=== PATIENT | male | born 1975 ===

== ENCOUNTER 2017-07-17 15:28 | Emergency (ER) | payer OTHER ==
[2017-07-17 15:33] VITALS: BP 110/89; PULSE 64; RESP 16; TEMP 99.1; O2SAT 99
--- NOTE | 2017-07-17 15:49 | ED PDOC ---
HPI: General Adult Time Seen by Provider: 07/17/17 15:34 Chief Complaint (Nursing): ENT Problem Chief Complaint (Provider): Ear pain History Per: Patient Onset/Duration Of Symptoms: Days (3) Current Symptoms Are (Timing): Still Present Severity: Moderate Additional History Per: Patient Additional Complaint(s): 42 y/o male complaining of right ear pain and headache for the last three days. No fever, sore throat, or other complaints. Past Medical History Vital Signs: Last Vital Signs Temp 99.1 F 07/17/17 15:31 Pulse 64 07/17/17 15:31 Resp 16 07/17/17 15:31 BP 110/89 07/17/17 15:31 Pulse Ox 99 07/17/17 15:51 - Medical History PMH: No Chronic Diseases, Diverticulitis - Family History Family History: States: No Known Family Hx - Home Medications Home Medications: Ambulatory Orders Medication Instructions Recorded Ciprofloxacin [Cipro] 500 mg PO BID #6 tab 11/09/16 Dicyclomine [Bentyl] 10 mg PO QID PRN #10 cap 11/09/16 Amoxicillin [Amoxil 500 mg Cap] 500 mg PO Q8 #30 cap 07/17/17 Naproxen [Naprosyn] 500 mg PO BID PRN #30 tab 07/17/17 - Allergies Allergies/Adverse Reactions: Allergies Allergy/AdvReac Type Severity Reaction Status Date / Time No Known Allergies Allergy Verified 11/11/14 08:06 Review of Systems Constitutional: Negative for: Fever ENT: Positive for: Ear Pain. Negative for: Throat Pain Physical Exam - Physical Exam Appears: Positive for: Well, No Acute Distress Skin: Positive for: Normal Color, Warm, Dry ENT: Positive for: TM Is/Are (right is bulging and erythematous, no canal erythema), Hearing Is (normal). Negative for: Pharyngeal Erythema, Tonsillar Exudate, Tonsillar Swelling Neck: Positive for: Painless ROM - ECG O2 Sat by Pulse Oximetry: 99 Medical Decision Making Medical Decision Making: Patient given prescription for Amoxicillin for Otitis Media. Discharge and reevaluation instructions give. All questions answered. Patient discharged in stable condition. ~ Scribe Attestation: Documented by~Kera Wright, acting as a scribe for DIANN Hung. Provider Scribe Attestation: All medical record entries made by the Scribe were at my direction and personally dictated by me. I have reviewed the chart and agree that the record accurately reflects my personal performance of the history, physical exam, medical decision making, and the department course for this patient. I have also personally directed, reviewed, and agree with the discharge instructions and disposition. Disposition - Clinical Impression Clinical Impression: Otitis media - Patient ED Disposition Is Patient to be Admitted: No Counseled Patient/Family Regarding: Diagnosis, Need For Followup - Disposition Referrals: [facility] [Outside] Disposition: Routine/Home Disposition Time: 15:50 Condition: STABLE Prescriptions: Amoxicillin [Amoxil 500 mg Cap] 500 mg PO Q8 #30 cap Naproxen [Naprosyn] 500 mg PO BID PRN #30 tab PRN Reason: Pain Instructions: Otitis Media (ED) Forms: [employer] (Czech) Print Language: PERSIAN
== END 2017-07-17 16:14 | disposition home or self-care (01) ==
LOC: H.ER 15:28
DX: H66.91 Otitis media, unspecified, right ear (principal)

== ENCOUNTER 2018-10-29 14:59 | Emergency (ER) | payer OTHER ==
--- NOTE | 2018-10-29 15:30 | ED PDOC ---
HPI: Influenza Time Seen by Provider: 10/29/18 15:15 Chief Complaint: Flu-like Symptoms Chief Complaint (Provider): Flu-like Symptoms History Per: Patient Exam Limitations: no limitations Onset/Duration Of Symptoms: Days (x3) Additional complaint(s):: 43 year old male presents to the ED for evaluation of cough, fever, shaking, and body aches for the past three days. Denies vomiting and diarrhea. Notes taking Advil last at 0600 this morning, but states he does not feel like it helped him. PMD: [facility] Past Medical History Reviewed: Historical Data, Nursing Documentation, Vital Signs Vital Signs: Last Vital Signs Temp 103.1 F H 10/29/18 15:11 Pulse 98 H 10/29/18 15:11 Resp 18 10/29/18 15:11 BP 103/60 10/29/18 15:11 Pulse Ox 99 10/29/18 15:11 - Medical History PMH: Diverticulitis - Surgical History Surgical History: No Surg Hx - Family History Family History: States: Unknown Family Hx - Home Medications Home Medications: Ambulatory Orders Medication Instructions Recorded Ciprofloxacin [Cipro] 500 mg PO BID #6 tab 11/09/16 Dicyclomine [Bentyl] 10 mg PO QID PRN #10 cap 11/09/16 Amoxicillin [Amoxil 500 mg Cap] 500 mg PO Q8 #30 cap 07/17/17 Naproxen [Naprosyn] 500 mg PO BID PRN #30 tab 07/17/17 Acetaminophen [Acetaminophen Extra 2 tab PO Q6 PRN #24 tablet 10/29/18 Strength] Ibuprofen [Motrin Tab] 800 mg PO Q8 PRN #21 tab 10/29/18 Oseltamivir Cap [Tamiflu] 75 mg PO BID #9 cap 10/29/18 - Allergies Allergies/Adverse Reactions: Allergies Allergy/AdvReac Type Severity Reaction Status Date / Time No Known Allergies Allergy Verified 10/29/18 15:11 Review of Systems ROS Statement: Except As Marked, All Systems Reviewed And Found Negative Constitutional: Positive for: Fever, Other (shakes; body aches) Respiratory: Positive for: Cough Gastrointestinal: Negative for: Vomiting, Diarrhea Physical Exam - Reviewed Nursing Documentation Reviewed: Yes Vital Signs Reviewed: Yes - Physical Exam Appears: Positive for: No Acute Distress (but pt noted trembling) Head Exam: Positive for: ATRAUMATIC, NORMOCEPHALIC Skin: Positive for: Normal Color, Warm. Negative for: Rash Eye Exam: Positive for: Normal appearance ENT: Positive for: Normal ENT Inspection Neck: Positive for: Normal, Painless ROM, Supple Cardiovascular/Chest: Positive for: Regular Rate, Rhythm Respiratory: Positive for: Normal Breath Sounds. Negative for: Respiratory Distress Extremity: Positive for: Normal ROM Neurologic/Psych: Positive for: Alert, Oriented (x3). Negative for: Motor/Sensory Deficits Medical Decision Making Medical Decision Making: Time: 152 Initial Impression: flu-like symptoms Initial Plan: --Ibuprofen 800mg PO --Tamiflu 75mg PO --Tylenol 975mg PO --Influenza A B swab Scribe Attestation: Documented by Wilma Lo acting as a scribe for Tan Mi PA-C. Provider Scribe Attestation: All medical record entries made by the Scribe were at my direction and personally dictated by me. I have reviewed the chart and agree that the record accurately reflects my personal performance of the history, physical exam, med [facility] decision making, and the department course for this patient. I have also personally directed, reviewed, and agree with the discharge instructions and disposition. - ECG O2 Sat by Pulse Oximetry: 99 (RA) Pulse Ox Interpretation: Normal - Progress ED Course And Treament: tylenol 975mg x 1 dose motrin 800mg x 1 dose tamiflu 75 mg x 1 dose FLU A positive Disposition - Clinical Impression Clinical Impression: Influenza A - Patient ED Disposition Is Patient to be Admitted: No - Disposition Referrals: [facility] [Outside] Disposition: Routine/Home Disposition Time: 16:24 Condition: FAIR Prescriptions: Acetaminophen [Acetaminophen Extra Strength] 2 tab PO Q6 PRN #24 tablet PRN Reason: Fever >100.4 F Ibuprofen [Motrin Tab] 800 mg PO Q8 PRN #21 tab PRN Reason: Fever >100.4 F Oseltamivir Cap [Tamiflu] 75 mg PO BID #9 cap Instructions: Flu, Adult (DC) Forms: [facility] ED School/Work Excuse Print Language: SWEDISH
[2018-10-29 17:51] VITALS: BP 103/66; PULSE 91; RESP 16; TEMP 100.1; O2SAT 97
== END 2018-10-29 16:40 | disposition home or self-care (01) ==
LOC: H.ER 14:59
DX: J09.X2 Influenza due to identified novel influenza A virus with other respiratory manifestations (principal)